=== PATIENT | female | born 1985 | race Hispanic/Latino ===

== ENCOUNTER 2018-04-12 03:22 | Emergency (ER) | payer MEDICAID, OTHER ==
[2018-04-12] MEDS ORDERED: CEPHALEXIN 500 MG CAPSULE ONE (04:27)
== END 2018-04-12 04:33 | disposition home or self-care (01) ==
LOC: EDH 03:22
DX: H61.21 Impacted cerumen, right ear (principal); H66.001 Acute suppurative otitis media without spontaneous rupture of ear drum, right ear
CPT/HCPCS: 69210